=== PATIENT | male | born 1935 | race Caucasian/White ===

== ENCOUNTER 2016-07-21 11:24 | Outpatient (CLI) | payer MEDICARE, BC | END 2016-07-21 11:25 | disposition home or self-care (01) | DRG 554 | LOC: CONVCARE 11:24 | PROVIDERS: ATTEND Orthopaedic Surgery | DX: M17.12 Unilateral primary osteoarthritis, left knee (principal) | CPT/HCPCS: 73562 ==

== ENCOUNTER 2016-07-28 14:40 | Outpatient (CLI) | payer MEDICARE, BC | END 2016-07-28 14:41 | disposition home or self-care (01) | DRG 554 | LOC: CONVCARE 14:40 | PROVIDERS: ATTEND Orthopaedic Surgery | DX: M17.12 Unilateral primary osteoarthritis, left knee (principal) | CPT/HCPCS: 36415 ==

== ENCOUNTER 2016-10-03 16:41 | Emergency (ER) | payer MEDICARE, BC ==
[2016-10-03] MEDS ORDERED: KETOROLAC TROMETHAMINE 30 MG/ML SOL IM ONE (17:08)
[2016-10-03] MEDS ORDERED: KETOROLAC TROMETHAMINE 30 MG/ML SOL ONE (17:09)
[2016-10-03] MEDS ORDERED: APAP/OXYCODONE 325/5 TAB ONE (17:09)
[2016-10-03] MEDS ORDERED: APAP/OXYCODONE 325/5 TAB PO ONE (17:10)
[2016-10-03 17:20] VITALS: BP 154/78; PULSE 57; RESP 16; TEMP 98.2; O2SAT 97
== END 2016-10-03 18:07 | disposition home or self-care (01) | DRG 93 ==
LOC: ED 16:41
DX: G89.29 Other chronic pain (principal); M25.561 Pain in right knee; M54.5 Low back pain; M25.562 Pain in left knee
CPT/HCPCS: 96372; 99282; J1885

== ENCOUNTER 2016-11-19 07:10 | Day surgery (SDC) | payer MEDICARE, BC ==
[2016-11-19] MEDS ORDERED: LIDOCAINE HCL 1% MPF SOL ONE (07:40)
[2016-11-19] MEDS ORDERED: PROPOFOL 500 MG/50 ML EMU IV ONE (07:40)
[2016-11-19 09:37] VITALS: BP 120/60; PULSE 63; RESP 24; TEMP 97; O2SAT 98
== END 2016-11-19 09:55 | disposition home or self-care (01) | DRG 812 ==
LOC: SURG 07:10
PROVIDERS: ATTEND Surgery
DX: D50.0 Iron deficiency anemia secondary to blood loss (chronic) (principal); E11.9 Type 2 diabetes mellitus without complications
CPT/HCPCS: 82962; J2001; J2704

== ENCOUNTER 2016-12-22 11:00 | Inpatient (IN) | payer MEDICARE, BC ==
[2017-01-05] MEDS ORDERED: SODIUM CHLORIDE 0.9% FLUSH 10 ML SOL IV PRN (05:30)
[2017-01-05] MEDS: SCOPOLAMINE 1.5MG PATCH TD SCH (05:53)
[2017-01-05] MEDS ORDERED: LACTATED RINGERS 1,000 ML IV ONE (06:30)
[2017-01-05] MEDS ORDERED: SODIUM CHLORIDE 20 ML 40 ML ONE (07:09)
[2017-01-05] MEDS ORDERED: TRANEXAMIC ACID 100 MG/ML SOL ONE (07:25)
[2017-01-05] MEDS ORDERED: LACTATED RINGERS 1,000 ML IV SCH (07:30)
[2017-01-05] MEDS ORDERED: ONDANSETRON HCL 4 MG/2 ML SOL ONE (07:44)
[2017-01-05] MEDS ORDERED: PROPOFOL 500 MG/50 ML EMU IV ONE (07:44)
[2017-01-05] MEDS ORDERED: DEXAMETHASONE 20 MG/5 ML (4 MG/ML SOL) ONE (07:44)
[2017-01-05] MEDS ORDERED: MORPHINE SULFATE 0.5 MG/ML SOL ONE (07:44)
[2017-01-05] MEDS ORDERED: LIDOCAINE HCL 1% MPF SOL ONE (07:44)
[2017-01-05] MEDS ORDERED: METOCLOPRAMIDE HYDROCHLORIDE 5 MG/ML SOL ONE (07:44)
[2017-01-05] MEDS ORDERED: CEFAZOLIN SODIUM 1 GM PDS ONE ×3 (07:45→23:58)
[2017-01-05] MEDS ORDERED: PHENYLEPHRINE HYDROCHLORIDE 10 MG/ML SOL ONE (09:31)
[2017-01-05] MEDS: BUPIVACAINE LIPOSOME 20 ML SUS ONE ×2 (09:35→10:01)
[2017-01-05] MEDS: BUPIVACAINE HCL 0.25% MPF 10 ML SOL INFIL ONE ×2 (09:35→10:01)
[2017-01-05] MEDS ORDERED: PROPOFOL 10 MG/ML EMU IV ONE ×3 (09:37→10:20)
[2017-01-05] MEDS ORDERED: ONDANSETRON HCL 4 MG/2 ML SOL IV PRN (10:33)
[2017-01-05] MEDS ORDERED: SODIUM CHLORIDE 0.9% 500 ML 500 ML IV PRN (10:33)
[2017-01-05] MEDS ORDERED: ONDANSETRON 4 MG ODT BU PRN (10:33)
[2017-01-05] MEDS ORDERED: DIAZEPAM 5 MG TAB PO PRN (10:33)
[2017-01-05] MEDS ORDERED: FLEET ENEMA PR PRN (10:33)
[2017-01-05] MEDS ORDERED: MAGNESIUM HYDROXIDE 30 ML SUS PO PRN (10:33)
[2017-01-05] MEDS ORDERED: BISACODYL 10 MG SUP PR PRN (10:33)
[2017-01-05] MEDS ORDERED: ZOLPIDEM TARTRATE 5 MG TAB PO PRN (10:33)
[2017-01-05] MEDS ORDERED: ALUMINUM/MAGNESIUM 30 ML SUS PO PRN (10:33)
[2017-01-05] MEDS ORDERED: HYDROMORPHONE 1 MG/ML SYRINGE IV PRN (11:00)
[2017-01-05] MEDS: SODIUM CHLORIDE 0.9% FLUSH 10 ML SOL IV SCH ×2 (11:59→18:31)
[2017-01-05] MEDS: DEXTROSE/SALINE 0.45/KCL 20MEQ 1,000 ML/1,000 ML SOL IV SCH ×2 (11:59→20:18)
[2017-01-05] MEDS ORDERED: PATIENT EDUCATION 1 MISC PRN (12:14)
[2017-01-05] MEDS ORDERED: PEG-400/PROPYLENE GLYCOL 1 DROP SOL OP PRN (15:00)
[2017-01-05] MEDS ORDERED: SODIUM CHLORIDE 0.9% 100 ML 100 ML IV ONE ×2 (16:59→23:58)
[2017-01-05] MEDS: CEFAZOLIN SODIUM 1 GM PDS 2 GM in SODIUM CHLORIDE 0.9% 100 ML 100 ML IV SCH (17:03)
[2017-01-05] MEDS: APAP/OXYCODONE 325/5 TAB PO PRN ×2 (17:03→21:28)
[2017-01-05] MEDS: FERROUS SULFATE 325 MG TAB PO SCH (17:36)
[2017-01-05] MEDS: GLIPIZIDE 5 MG TAB PO SCH (20:18)
[2017-01-05] MEDS: GABAPENTIN 300 MG CAP PO SCH (20:19)
[2017-01-05] MEDS: METFORMIN HYDROCHLORIDE 500 MG TAB PO SCH (20:19)
[2017-01-05] MEDS: METOPROLOL TARTRATE 25 MG TAB PO SCH (20:19)
[2017-01-05] MEDS: MAGNESIUM HYDROXIDE 30 ML SUS PO SCH (20:19)
[2017-01-05] MEDS: SENNOSIDES A AND B 8.6 MG TAB PO SCH (20:19)
[2017-01-05] MEDS: SIMVASTATIN 20 MG TAB PO SCH (20:19)
[2017-01-06] MEDS: CEFAZOLIN SODIUM 1 GM PDS 2 GM in SODIUM CHLORIDE 0.9% 100 ML 100 ML IV SCH (00:24)
[2017-01-06] MEDS: APAP/OXYCODONE 325/5 TAB PO PRN ×4 (01:03→19:06)
[2017-01-06] MEDS: SODIUM CHLORIDE 0.9% FLUSH 10 ML SOL IV SCH ×3 (02:16→19:17)
[2017-01-06] MEDS: ACETAMINOPHEN 325 MG PO PRN ×2 (04:21→16:58)
[2017-01-06 07:21] LABS: MEAN CORPUSCULAR HGB CONC 34.5 gm/dl (32.0-36.0)
[2017-01-06] MEDS: GABAPENTIN 300 MG CAP PO SCH ×2 (08:44→20:27)
[2017-01-06] MEDS: PANTOPRAZOLE SODIUM 40 MG ECT PO SCH (08:44)
[2017-01-06] MEDS: METFORMIN HYDROCHLORIDE 500 MG TAB PO SCH ×2 (08:44→20:26)
[2017-01-06] MEDS: LOSARTAN POTASSIUM 50 MG TAB PO SCH (08:44)
[2017-01-06] MEDS: FINASTERIDE 5 MG TAB PO SCH (08:45)
[2017-01-06] MEDS: GLIPIZIDE 5 MG TAB PO SCH ×2 (08:45→20:26)
[2017-01-06] MEDS: METOPROLOL TARTRATE 25 MG TAB PO SCH ×2 (08:45→20:26)
[2017-01-06] MEDS: FERROUS SULFATE 325 MG TAB PO SCH ×2 (08:45→20:24)
[2017-01-06] MEDS: RIVAROXABAN 10 MG TAB PO SCH (08:45)
[2017-01-06] MEDS: FLUTICASONE PROPIONATE SPR NAS SCH ×2 (08:57→20:25)
[2017-01-06] MEDS ORDERED: FERROUS SULFATE 325 MG TAB PO SCH (09:00)
[2017-01-06] MEDS ORDERED: LORAZEPAM 2 MG/ML SOL IV ONE (11:22)
[2017-01-06 15:37] LABS: BASOPHILS % (AUTO) 0 % (0-3); EOSINOPHILS % (AUTO) 1 % (0-9); HEMATOCRIT 31 % (39-53); MEAN CORPUSCULAR HGB CONC 34.7 gm/dl (32.0-36.0); MONOCYTES % (AUTO) 12.4 % (0-12); NEUTROPHILS % (AUTO) 75.7 % (37-80)
[2017-01-06 15:42] LABS: MEAN CORPUSCULAR VOLUME 79 fL (80-100)
[2017-01-06 15:46] LABS: CALCIUM 8.7 mg/dl (8.5-10.1); POTASSIUM 4.4 mMol/L (3.5-5.1)
[2017-01-06] MEDS ORDERED: ACETAMINOPHEN 650 MG SUP PR ONE (17:03)
[2017-01-06] MEDS ORDERED: QUETIAPINE FUMARATE 25 MG TAB ONE (18:45)
[2017-01-06] MEDS ORDERED: QUETIAPINE FUMARATE 25 MG TAB PO ONE (18:45)
[2017-01-06] MEDS ORDERED: SODIUM CHLORIDE 0.9% 1000ML 500 ML IV ONE (18:49)
[2017-01-06] MEDS ORDERED: SODIUM CHLORIDE 0.9% 100 ML 100 ML IV ONE (18:49)
[2017-01-06] MEDS: TRAZODONE HYDROCHLORIDE 50 MG TAB PO SCH (20:25)
[2017-01-06] MEDS: SENNOSIDES A AND B 8.6 MG TAB PO SCH (20:27)
[2017-01-06] MEDS: MAGNESIUM HYDROXIDE 30 ML SUS PO SCH (20:27)
[2017-01-06] MEDS: SIMVASTATIN 20 MG TAB PO SCH (20:27)
[2017-01-06] MEDS: SODIUM CHLORIDE 0.9% 1000ML 1,000 ML IV SCH (21:24)
[2017-01-07] MEDS: SODIUM CHLORIDE 0.9% 1000ML 1,000 ML IV SCH ×3 (02:19→12:39)
[2017-01-07] MEDS: SODIUM CHLORIDE 0.9% FLUSH 10 ML SOL IV SCH ×3 (02:32→17:44)
[2017-01-07] MEDS: ACETAMINOPHEN 325 MG PO PRN ×3 (02:32→21:09)
[2017-01-07 06:12] LABS: APPEARANCE,URINE Slightly Cloudy; BILIRUBIN,URINE NEGATIVE (NEGATIVE); COLOR,URINE Yellow; GLUCOSE, URINE (UA) NEGATIVE (NEGATIVE); KETONES,URINE TRACE (NEGATIVE); LEUKOCYTE ESTERASE ,URINE NEGATIVE (NEGATIVE); NITRATE,URINE NEGATIVE (NEGATIVE); OCCULT BLOOD,URINE 2+ (NEG-TRACE); PH,URINE 6.5; UROBILINOGEN,URINE 0.2 (0.2-1.0 EU)
[2017-01-07 06:23] LABS: WBC,URINE NEGATIVE (0-5AV/HPF)
[2017-01-07 07:14] LABS: MEAN CORPUSCULAR HGB CONC 33.8 gm/dl (32.0-36.0)
[2017-01-07 07:20] LABS: CALCIUM 8.4 mg/dl (8.5-10.1)
[2017-01-07] MEDS: FERROUS SULFATE 325 MG TAB PO SCH ×2 (08:18→17:45)
[2017-01-07] MEDS: LOSARTAN POTASSIUM 50 MG TAB PO SCH (08:18)
[2017-01-07] MEDS: GLIPIZIDE 5 MG TAB PO SCH ×2 (08:18→21:11)
[2017-01-07] MEDS: METFORMIN HYDROCHLORIDE 500 MG TAB PO SCH ×2 (08:19→21:10)
[2017-01-07] MEDS: PANTOPRAZOLE SODIUM 40 MG ECT PO SCH (08:20)
[2017-01-07] MEDS: RIVAROXABAN 10 MG TAB PO SCH (08:20)
[2017-01-07] MEDS: GABAPENTIN 300 MG CAP PO SCH ×2 (08:20→21:10)
[2017-01-07] MEDS: FLUTICASONE PROPIONATE SPR NAS SCH ×2 (08:25→21:12)
[2017-01-07] MEDS: METOPROLOL TARTRATE 25 MG TAB PO SCH ×2 (08:32→21:10)
[2017-01-07] MEDS: QUETIAPINE FUMARATE 25 MG TAB PO SCH ×2 (08:32→21:11)
[2017-01-07] MEDS: FINASTERIDE 5 MG TAB PO SCH (10:46)
[2017-01-07] MEDS: APAP/OXYCODONE 325/5 TAB PO PRN ×2 (14:50→21:09)
[2017-01-07] MEDS: SENNOSIDES A AND B 8.6 MG TAB PO SCH (21:11)
[2017-01-07] MEDS: TRAZODONE HYDROCHLORIDE 50 MG TAB PO SCH (21:11)
[2017-01-07] MEDS: SIMVASTATIN 20 MG TAB PO SCH (21:11)
[2017-01-07] MEDS: MAGNESIUM HYDROXIDE 30 ML SUS PO SCH (21:12)
[2017-01-08] MEDS: APAP/OXYCODONE 325/5 TAB PO PRN ×5 (04:31→22:58)
[2017-01-08] MEDS: SODIUM CHLORIDE 0.9% FLUSH 10 ML SOL IV SCH ×3 (04:31→20:51)
[2017-01-08] MEDS: SCOPOLAMINE 1.5MG PATCH TD SCH (06:24)
[2017-01-08 07:36] LABS: CALCIUM 8.2 mg/dl (8.5-10.1); POTASSIUM 4.2 mMol/L (3.5-5.1)
[2017-01-08 07:57] LABS: MEAN CORPUSCULAR HGB CONC 32.3 gm/dl (32.0-36.0)
[2017-01-08] MEDS: FERROUS SULFATE 325 MG TAB PO SCH ×2 (09:11→20:10)
[2017-01-08] MEDS: GLIPIZIDE 5 MG TAB PO SCH ×2 (09:12→22:02)
[2017-01-08] MEDS: PANTOPRAZOLE SODIUM 40 MG ECT PO SCH (09:12)
[2017-01-08] MEDS: METFORMIN HYDROCHLORIDE 500 MG TAB PO SCH ×2 (09:12→22:03)
[2017-01-08] MEDS: GABAPENTIN 300 MG CAP PO SCH ×2 (09:12→22:03)
[2017-01-08] MEDS: RIVAROXABAN 10 MG TAB PO SCH (09:13)
[2017-01-08] MEDS: QUETIAPINE FUMARATE 25 MG TAB PO SCH ×2 (09:13→22:06)
[2017-01-08] MEDS: FLUTICASONE PROPIONATE SPR NAS SCH ×2 (10:43→22:05)
[2017-01-08] MEDS: LOSARTAN POTASSIUM 50 MG TAB PO SCH (10:43)
[2017-01-08] MEDS: FINASTERIDE 5 MG TAB PO SCH (10:47)
[2017-01-08] MEDS: METOPROLOL TARTRATE 25 MG TAB PO SCH ×2 (10:47→22:02)
[2017-01-08] MEDS: HALOPERIDOL LACTATE 5 MG/ML SOL IM PRN (18:00)
[2017-01-08] MEDS: SIMVASTATIN 20 MG TAB PO SCH (22:04)
[2017-01-08] MEDS: SENNOSIDES A AND B 8.6 MG TAB PO SCH (22:04)
[2017-01-08] MEDS: MAGNESIUM HYDROXIDE 30 ML SUS PO SCH (22:15)
[2017-01-08] MEDS: TRAZODONE HYDROCHLORIDE 50 MG TAB PO SCH (22:16)
[2017-01-09] MEDS: HALOPERIDOL LACTATE 5 MG/ML SOL IM PRN (02:55)
[2017-01-09 07:30] LABS: BASOPHILS % (AUTO) 1 % (0-3); EOSINOPHILS % (AUTO) 4 % (0-9); HEMATOCRIT 27 % (39-53); MEAN CORPUSCULAR HGB CONC 34.4 gm/dl (32.0-36.0); MONOCYTES % (AUTO) 11.5 % (0-12); NEUTROPHILS % (AUTO) 66.3 % (37-80)
[2017-01-09 07:31] LABS: CALCIUM 8.8 mg/dl (8.5-10.1); POTASSIUM 4.1 mMol/L (3.5-5.1)
[2017-01-09 07:43] LABS: MEAN CORPUSCULAR VOLUME 78 fL (80-100)
[2017-01-09] MEDS: QUETIAPINE FUMARATE 25 MG TAB PO SCH ×2 (09:47→20:21)
[2017-01-09] MEDS: GABAPENTIN 300 MG CAP PO SCH ×2 (09:48→20:24)
[2017-01-09] MEDS: FERROUS SULFATE 325 MG TAB PO SCH ×2 (09:48→17:34)
[2017-01-09] MEDS: LOSARTAN POTASSIUM 50 MG TAB PO SCH (09:49)
[2017-01-09] MEDS: FLUTICASONE PROPIONATE SPR NAS SCH ×2 (09:49→20:20)
[2017-01-09] MEDS: GLIPIZIDE 5 MG TAB PO SCH ×2 (09:50→20:23)
[2017-01-09] MEDS: METOPROLOL TARTRATE 25 MG TAB PO SCH ×2 (09:50→20:24)
[2017-01-09] MEDS: METFORMIN HYDROCHLORIDE 500 MG TAB PO SCH ×2 (09:50→20:24)
[2017-01-09] MEDS: FINASTERIDE 5 MG TAB PO SCH (09:50)
[2017-01-09] MEDS: PANTOPRAZOLE SODIUM 40 MG ECT PO SCH (09:50)
[2017-01-09] MEDS: RIVAROXABAN 10 MG TAB PO SCH (09:51)
[2017-01-09] MEDS: APAP/OXYCODONE 325/5 TAB PO PRN ×3 (10:56→20:21)
[2017-01-09] MEDS: MAGNESIUM HYDROXIDE 30 ML SUS PO SCH (20:21)
[2017-01-09] MEDS: TRAZODONE HYDROCHLORIDE 50 MG TAB PO SCH (20:22)
[2017-01-09] MEDS: SENNOSIDES A AND B 8.6 MG TAB PO SCH (20:23)
[2017-01-09] MEDS: SIMVASTATIN 20 MG TAB PO SCH (20:25)
[2017-01-10 00:33] VITALS: RESP 20
[2017-01-10] MEDS: APAP/OXYCODONE 325/5 TAB PO PRN (06:38)
[2017-01-10 08:03] LABS: CALCIUM 8.9 mg/dl (8.5-10.1); POTASSIUM 4.6 mMol/L (3.5-5.1)
[2017-01-10 08:05] LABS: BASOPHILS % (AUTO) 1 % (0-3); EOSINOPHILS % (AUTO) 5 % (0-9); HEMATOCRIT 28 % (39-53); MEAN CORPUSCULAR HGB CONC 32.1 gm/dl (32.0-36.0); MONOCYTES % (AUTO) 10.8 % (0-12); NEUTROPHILS % (AUTO) 63.7 % (37-80)
[2017-01-10 08:12] LABS: MEAN CORPUSCULAR VOLUME 80 fL (80-100)
[2017-01-10] MEDS: RIVAROXABAN 10 MG TAB PO SCH (08:16)
[2017-01-10] MEDS: PANTOPRAZOLE SODIUM 40 MG ECT PO SCH (08:16)
[2017-01-10] MEDS: FINASTERIDE 5 MG TAB PO SCH (08:16)
[2017-01-10] MEDS: GLIPIZIDE 5 MG TAB PO SCH (08:16)
[2017-01-10] MEDS: QUETIAPINE FUMARATE 25 MG TAB PO SCH (08:17)
[2017-01-10] MEDS: FERROUS SULFATE 325 MG TAB PO SCH (08:17)
[2017-01-10] MEDS: LOSARTAN POTASSIUM 50 MG TAB PO SCH (08:18)
[2017-01-10] MEDS: METFORMIN HYDROCHLORIDE 500 MG TAB PO SCH (08:19)
[2017-01-10] MEDS: GABAPENTIN 300 MG CAP PO SCH (08:19)
[2017-01-10] MEDS: FLUTICASONE PROPIONATE SPR NAS SCH (08:19)
[2017-01-10] MEDS: METOPROLOL TARTRATE 25 MG TAB PO SCH (08:20)
[2017-01-10 08:24] VITALS: BP 105/68; PULSE 85; TEMP 98; O2SAT 93
== END 2017-01-10 08:45 | DRG 470 ==
LOC: ACUTE CARE 01-05 05:15
PROVIDERS: ADMIT Orthopaedic Surgery; ATTEND Orthopaedic Surgery
PROC: F01ZDFZ Gait and/or Balance Assessment using Assistive, Adaptive, Supportive or Protective Equipment (ICD-10-PCS; 2017-01-05)
PROC: F01ZCZZ Transfer Assessment (ICD-10-PCS; 2017-01-05)
PROC: F01ZBZZ Bed Mobility Assessment (ICD-10-PCS; 2017-01-05)
PROC: 0SRD0J9 Replacement of Left Knee Joint with Synthetic Substitute, Cemented, Open Approach (ICD-10-PCS; principal; 2017-01-05 08:00)
PROC: F02Z1ZZ Dressing Assessment (ICD-10-PCS; 2017-01-06)
PROC: F02Z0ZZ Bathing/Showering Assessment (ICD-10-PCS; 2017-01-06)
PROC: F02Z3ZZ Grooming/Personal Hygiene Assessment (ICD-10-PCS; 2017-01-06)
DX: M17.12 Unilateral primary osteoarthritis, left knee (principal); E11.9 Type 2 diabetes mellitus without complications; D64.9 Anemia, unspecified; I10 Essential (primary) hypertension; R50.9 Fever, unspecified; Z96.652 Presence of left artificial knee joint; R41.0 Disorientation, unspecified; R33.9 Retention of urine, unspecified; Z86.79 Personal history of other diseases of the circulatory system
CPT/HCPCS: 36415; 51798; 71010; 73560; 80048; 81001; 82962; 85018; 85025; 85027; 85049; 94150; 99070; J0690; J1100; J1630; J2274; J2405; J2765; A6232; A6402; J1170; J2001; J2704

== ENCOUNTER 2017-01-10 08:42 | Inpatient (IN) | payer MEDICARE, BC ==
[2017-01-10] MEDS: APAP/OXYCODONE 325/5 TAB PO PRN ×2 (12:09→20:36)
[2017-01-10] MEDS: GABAPENTIN 300 MG CAP PO SCH ×2 (14:16→20:38)
[2017-01-10] MEDS: FERROUS SULFATE 325 MG TAB PO SCH (17:19)
[2017-01-10] MEDS: METFORMIN HYDROCHLORIDE 500 MG TAB PO SCH (17:20)
[2017-01-10] MEDS: GLIPIZIDE 10 MG TABLET PO SCH (17:20)
[2017-01-10] MEDS: METOPROLOL TARTRATE 25 MG TAB PO SCH (20:37)
[2017-01-10] MEDS: SENNOSIDES A AND B 8.6 MG TAB PO SCH (20:38)
[2017-01-10] MEDS: SIMVASTATIN 20 MG TAB PO SCH (20:39)
[2017-01-10] MEDS ORDERED: QUETIAPINE FUMARATE 25 MG TAB PO SCH (21:00)
[2017-01-10] MEDS ORDERED: HALOPERIDOL LACTATE 5 MG/ML SOL IM ONE (21:31)
[2017-01-10] MEDS ORDERED: TRAZODONE HYDROCHLORIDE 50 MG TAB PO ONE (21:32)
[2017-01-10] MEDS ORDERED: HALOPERIDOL LACTATE 5 MG/ML SOL ONE (21:38)
[2017-01-11] MEDS: APAP/OXYCODONE 325/5 TAB PO PRN ×3 (00:26→14:12)
[2017-01-11] MEDS: GLIPIZIDE 10 MG TABLET PO SCH ×3 (06:21→20:52)
[2017-01-11] MEDS: METFORMIN HYDROCHLORIDE 500 MG TAB PO SCH ×3 (08:26→20:53)
[2017-01-11] MEDS: GABAPENTIN 300 MG CAP PO SCH ×2 (08:26→14:12)
[2017-01-11] MEDS: LOSARTAN POTASSIUM 50 MG TAB PO SCH (08:27)
[2017-01-11] MEDS: METOPROLOL TARTRATE 25 MG TAB PO SCH (08:27)
[2017-01-11] MEDS: FLUTICASONE PROPIONATE SPR NAS SCH ×2 (08:27→21:48)
[2017-01-11] MEDS: FERROUS SULFATE 325 MG TAB PO SCH ×3 (08:27→20:51)
[2017-01-11] MEDS: FINASTERIDE 5 MG TAB PO SCH (08:27)
[2017-01-11] MEDS: RIVAROXABAN 10 MG TAB PO SCH (08:28)
[2017-01-11] MEDS: PANTOPRAZOLE SODIUM 40 MG ECT PO SCH (08:28)
[2017-01-11] MEDS: QUETIAPINE FUMARATE 25 MG TAB PO SCH (14:11)
[2017-01-11] MEDS: HALOPERIDOL LACTATE 5 MG/ML SOL IM PRN (19:11)
[2017-01-12] MEDS: HALOPERIDOL LACTATE 5 MG/ML SOL IM PRN (01:41)
[2017-01-12] MEDS: METOPROLOL TARTRATE 25 MG TAB PO SCH ×3 (01:47→20:43)
[2017-01-12] MEDS: SIMVASTATIN 20 MG TAB PO SCH ×2 (02:08→20:43)
[2017-01-12] MEDS: SENNOSIDES A AND B 8.6 MG TAB PO SCH ×2 (02:08→20:43)
[2017-01-12] MEDS: GABAPENTIN 300 MG CAP PO SCH ×4 (02:08→20:43)
[2017-01-12] MEDS: APAP/OXYCODONE 325/5 TAB PO PRN ×2 (02:22→03:14)
[2017-01-12] MEDS: FERROUS SULFATE 325 MG TAB PO SCH ×2 (11:24→17:29)
[2017-01-12] MEDS: LOSARTAN POTASSIUM 50 MG TAB PO SCH (11:24)
[2017-01-12] MEDS: PANTOPRAZOLE SODIUM 40 MG ECT PO SCH (11:24)
[2017-01-12] MEDS: METFORMIN HYDROCHLORIDE 500 MG TAB PO SCH ×2 (11:25→17:29)
[2017-01-12] MEDS: QUETIAPINE FUMARATE 25 MG TAB PO SCH (11:26)
[2017-01-12] MEDS: RIVAROXABAN 10 MG TAB PO SCH (11:26)
[2017-01-12] MEDS: GLIPIZIDE 10 MG TABLET PO SCH ×2 (11:27→17:29)
[2017-01-12] MEDS: FINASTERIDE 5 MG TAB PO SCH (11:28)
[2017-01-12] MEDS: FLUTICASONE PROPIONATE SPR NAS SCH ×2 (12:25→20:41)
[2017-01-12] MEDS: ACETAMINOPHEN 325 MG PO PRN (17:30)
[2017-01-13] MEDS: ACETAMINOPHEN 325 MG PO PRN ×2 (01:59→14:20)
[2017-01-13] MEDS: GLIPIZIDE 10 MG TABLET PO SCH ×2 (06:15→16:02)
[2017-01-13] MEDS: PANTOPRAZOLE SODIUM 40 MG ECT PO SCH (08:36)
[2017-01-13] MEDS: FERROUS SULFATE 325 MG TAB PO SCH ×2 (08:36→18:03)
[2017-01-13] MEDS: LOSARTAN POTASSIUM 50 MG TAB PO SCH (08:38)
[2017-01-13] MEDS: METFORMIN HYDROCHLORIDE 500 MG TAB PO SCH ×2 (08:38→18:03)
[2017-01-13] MEDS: METOPROLOL TARTRATE 25 MG TAB PO SCH ×2 (08:38→20:05)
[2017-01-13] MEDS: GABAPENTIN 300 MG CAP PO SCH ×3 (08:38→20:06)
[2017-01-13] MEDS: RIVAROXABAN 10 MG TAB PO SCH (08:38)
[2017-01-13] MEDS: FLUTICASONE PROPIONATE SPR NAS SCH ×2 (08:39→20:11)
[2017-01-13] MEDS: FINASTERIDE 5 MG TAB PO SCH (08:40)
[2017-01-13] MEDS: QUETIAPINE FUMARATE 25 MG TAB PO SCH (16:45)
[2017-01-13] MEDS: SENNOSIDES A AND B 8.6 MG TAB PO SCH (20:06)
[2017-01-13] MEDS: SIMVASTATIN 20 MG TAB PO SCH (20:07)
[2017-01-14] MEDS: GLIPIZIDE 10 MG TABLET PO SCH ×2 (06:13→15:38)
[2017-01-14] MEDS: METOPROLOL TARTRATE 25 MG TAB PO SCH ×2 (09:35→20:00)
[2017-01-14] MEDS: GABAPENTIN 300 MG CAP PO SCH ×3 (09:35→20:00)
[2017-01-14] MEDS: FERROUS SULFATE 325 MG TAB PO SCH ×2 (09:35→17:51)
[2017-01-14] MEDS: PANTOPRAZOLE SODIUM 40 MG ECT PO SCH (09:35)
[2017-01-14] MEDS: ACETAMINOPHEN 325 MG PO PRN ×2 (09:35→20:00)
[2017-01-14] MEDS: RIVAROXABAN 10 MG TAB PO SCH (09:35)
[2017-01-14] MEDS: METFORMIN HYDROCHLORIDE 500 MG TAB PO SCH ×3 (09:35→17:52)
[2017-01-14] MEDS: LOSARTAN POTASSIUM 50 MG TAB PO SCH (09:35)
[2017-01-14] MEDS: FLUTICASONE PROPIONATE SPR NAS SCH ×2 (09:37→20:01)
[2017-01-14] MEDS: FINASTERIDE 5 MG TAB PO SCH (09:37)
[2017-01-14] MEDS: QUETIAPINE FUMARATE 25 MG TAB PO SCH (15:38)
[2017-01-14] MEDS: SENNOSIDES A AND B 8.6 MG TAB PO SCH (20:00)
[2017-01-14] MEDS: SIMVASTATIN 20 MG TAB PO SCH (20:01)
[2017-01-15] MEDS: ACETAMINOPHEN 325 MG PO PRN ×4 (06:04→20:48)
[2017-01-15] MEDS: GLIPIZIDE 10 MG TABLET PO SCH ×2 (06:04→15:51)
[2017-01-15] MEDS: GABAPENTIN 300 MG CAP PO SCH ×3 (08:34→20:47)
[2017-01-15] MEDS: FERROUS SULFATE 325 MG TAB PO SCH ×2 (08:34→17:31)
[2017-01-15] MEDS: METOPROLOL TARTRATE 25 MG TAB PO SCH ×2 (08:35→20:46)
[2017-01-15] MEDS: METFORMIN HYDROCHLORIDE 500 MG TAB PO SCH ×2 (08:35→17:31)
[2017-01-15] MEDS: LOSARTAN POTASSIUM 50 MG TAB PO SCH (08:35)
[2017-01-15] MEDS: FLUTICASONE PROPIONATE SPR NAS SCH ×2 (08:36→20:46)
[2017-01-15] MEDS: PANTOPRAZOLE SODIUM 40 MG ECT PO SCH (08:36)
[2017-01-15] MEDS: RIVAROXABAN 10 MG TAB PO SCH (08:37)
[2017-01-15] MEDS: FINASTERIDE 5 MG TAB PO SCH (09:31)
[2017-01-15] MEDS: QUETIAPINE FUMARATE 25 MG TAB PO SCH (15:50)
[2017-01-15] MEDS: SENNOSIDES A AND B 8.6 MG TAB PO SCH (20:46)
[2017-01-15] MEDS: SIMVASTATIN 20 MG TAB PO SCH (20:47)
[2017-01-16] MEDS: GLIPIZIDE 10 MG TABLET PO SCH (06:31)
[2017-01-16 08:13] VITALS: BP 144/79; PULSE 90; RESP 16; TEMP 97.7; O2SAT 98
[2017-01-16] MEDS: ACETAMINOPHEN 325 MG PO PRN (08:18)
[2017-01-16] MEDS ORDERED: IBUPROFEN 600 MG TAB PO PRN (08:39)
[2017-01-16 09:00] LABS: BASOPHILS % (AUTO) 1 % (0-3); EOSINOPHILS % (AUTO) 3 % (0-9); HEMATOCRIT 31 % (39-53); MEAN CORPUSCULAR HGB CONC 32.9 gm/dl (32.0-36.0); MEAN CORPUSCULAR VOLUME 79 fL (80-100); MONOCYTES % (AUTO) 10.1 % (0-12); NEUTROPHILS % (AUTO) 70.9 % (37-80)
[2017-01-16] MEDS: PANTOPRAZOLE SODIUM 40 MG ECT PO SCH (09:53)
[2017-01-16] MEDS: METFORMIN HYDROCHLORIDE 500 MG TAB PO SCH (09:53)
[2017-01-16] MEDS: GABAPENTIN 300 MG CAP PO SCH (09:53)
[2017-01-16] MEDS: METOPROLOL TARTRATE 25 MG TAB PO SCH (09:53)
[2017-01-16] MEDS: RIVAROXABAN 10 MG TAB PO SCH (09:53)
[2017-01-16] MEDS: LOSARTAN POTASSIUM 50 MG TAB PO SCH (09:54)
[2017-01-16] MEDS: FINASTERIDE 5 MG TAB PO SCH (09:54)
[2017-01-16] MEDS: FLUTICASONE PROPIONATE SPR NAS SCH (09:54)
[2017-01-16] MEDS: FERROUS SULFATE 325 MG TAB PO SCH (09:54)
== END 2017-01-16 10:15 | DRG 566 ==
LOC: UNDOADMIN 08:50 → ACUTE CARE 08:50
PROVIDERS: ADMIT Family Medicine; ATTEND Family Medicine
DX: Z96.652 Presence of left artificial knee joint (principal); D64.9 Anemia, unspecified; E11.9 Type 2 diabetes mellitus without complications; R41.0 Disorientation, unspecified; I10 Essential (primary) hypertension
CPT/HCPCS: 51798; 80048; 82962; 85025; J1630; A6232

== ENCOUNTER 2017-03-09 08:00 | Outpatient (CLI) | payer MEDICARE, BC ==
[2017-01-16 08:13] VITALS: O2SAT 98
== END 2017-03-09 08:01 | disposition home or self-care (01) | DRG 561 ==
LOC: CONVCARE 08:00
PROVIDERS: ATTEND Orthopaedic Surgery
DX: Z47.1 Aftercare following joint replacement surgery (principal); Z96.652 Presence of left artificial knee joint
CPT/HCPCS: 73560